=== PATIENT | male | born 1965 | race African-American/Black ===

== ENCOUNTER 2017-10-27 16:22 | Observation (INO) | payer OTHER ==
[2017-10-27] MEDS ORDERED: Nitroglycerin 0.4 MG TAB (25 Tab Bottle) ONE (16:48)
[2017-10-27 16:55] LABS: #Eosinphils 0.1 thou/uL (0.0-0.7); #Lymphocytes 1.9 thou/uL (1.20-3.40); #Monocytes 0.3 thou/uL (0.11-0.59); #Neutrophils 1.7 thou/uL (1.40-6.50); %Basophils 1.2 % (0.0-1.0); %Eosinophils 2.9 % (0.0-10.0); %Lymphocytes 47.8 % (21.0-51.0); %Monocytes 6.8 % (0.0-10.0); %Neutrophils 41.3 % (42.0-75.0); Hemoglobin 14.1 g/dL (14.0-18.0); Mean Corpuscular Hemoglobin 31.6 pg (27.0-31.0); Mean Corpuscular Volume 87.7 fl (80.0-94.0); Mean Platelet Volume 7.8 fL (7.4-10.4); Platelet Count 165 thou/uL (130-400); RBC Distribution Width 12.3 % (11.5-14.5); Red Blood Cell (RBC) Count 4.47 mill/uL (4.70-6.10)
--- NOTE | 2017-10-27 17:02 | RAD ---
PORTABLE CHEST ONE VIEW: 10/27/17 at 4:47 p.m. HISTORY: Chest pain. FINDINGS: Comparison made with exam of 03/31/16. The heart size is normal. No focal areas of consolidation, pneumothoraces or pleural effusions are se en. IMPRESSION: No radiographic evidence of acute cardiopulmonary process. POS: [facility]
[2017-10-27 17:11] LABS: ALT (SGPT) 95 U/L (8-55); AST (SGOT) 37 U/L (5-34); Albumin 4.6 g/dL (3.5-5.0); Alkaline Phosphatase 58 U/L (40-150); Anion Gap 14 mmol/L (10-20); BUN (Urea Nitrogen) 20 mg/dL (8.9-20.6); Bilirubin, Total 0.5 mg/dL (0.2-1.2); CK (CPK) 447 U/L (30-200); Calc. Creatinine Clearance 0 mL/min (70-130); Calcium 10.2 mg/dL (7.8-10.44); Carbon Dioxide 26 mmol/L (22-29); Chloride 103 mmol/L (98-107); Estimated GFR-MDRD 72; Glucose 88 mg/dL (70-105); Lipase 17 U/L (8-78); Potassium 3.8 mmol/L (3.5-5.1); Protein, Total 7.6 g/dL (6.0-8.3); Sodium 139 mmol/L (136-145)
[2017-10-27 17:13] LABS: CKMB 3.4 ng/mL (0-6.6); Troponin I Less than 0.010 ng/mL (< 0.028)
[2017-10-27 20:29] LABS: Troponin I Less than 0.010 ng/mL (< 0.028)
[2017-10-27 23:11] LABS: Troponin I Less than 0.010 ng/mL (< 0.028)
[2017-10-27] MEDS ORDERED: Ondansetron HCl/PF 4 MG/2 ML Vial IVP PRN (23:14)
[2017-10-27] MEDS ORDERED: Ondansetron ODT 4 MG TAB SL PRN (23:14)
[2017-10-27] MEDS ORDERED: Sodium Chloride 0.9% 1,000 ML IV SCH (23:14)
[2017-10-27] MEDS ORDERED: Acetaminophen 325 MG TAB PO PRN (23:14)
[2017-10-27 23:43] VITALS: BMI 20.1
[2017-10-28] MEDS ORDERED: Acetaminophen 325 MG TAB PO PRN (00:54)
[2017-10-28] MEDS ORDERED: Calcium Carbonate 500 MG ChewTAB PO PRN (00:54)
[2017-10-28] MEDS ORDERED: Ondansetron HCl/PF 4 MG/2 ML Vial IVP PRN (00:54)
[2017-10-28] MEDS ORDERED: Nitroglycerin 0.4 MG TAB (25 Tab Bottle) PO PRN (00:54)
[2017-10-28] MEDS ORDERED: Milk Of Magnesia 30 ML UDCUP PO PRN (00:54)
[2017-10-28] MEDS ORDERED: Senokot 8.6 MG TAB PO PRN (00:54)
[2017-10-28] MEDS ORDERED: Ondansetron ODT 4 MG TAB PO PRN (00:54)
[2017-10-28] MEDS ORDERED: hydrALAZINE 20 MG/ML VIAL SLOW IVP PRN (01:06)
--- NOTE | 2017-10-28 01:16 | HP ---
The patient was seen and examined on 10/27/2017. PRIMARY CARE PHYSICIAN: Quiana Valderrama DO PRIMARY DOCK ASSOCIATE: Ricardo Mensah MD CHIEF COMPLAINT: Chest discomfort. HISTORY OF PRESENT ILLNESS: The patient is a 51-year-old male with cardiomyopathy and hypertension p resented to the emergency room with chest discomfort that started this afternoon. The chest discomfo rt was stabbing in nature, 10/10, substernal, without any aggravating or relieving factor. It was mo re or less constant. He denies any associated nausea, vomiting, diaphoresis, palpitations, or syncop e. He denies recent immobilization, travel, cough, shortness of breath, wheezing, or heartburn. He has generalized fatigue per family report. At times, he gets short of breath on moderate exertion. He had an echocardiogram with Dr. Mensah last week. PAST MEDICAL HISTORY: 1. Hypertension. 2. Cardiomyopathy. 3. Hyperlipidemia. PAST SURGICAL HISTORY: Reviewed with the patient and none. ALLERGIES: No known drug allergies. CURRENT HOME MEDICATIONS: Per [facility], lisinopril/HCTZ 20/25 daily, Procardia-XL, Procardia XL 60 m g twice a day, potassium chloride 20 mEq daily, carvedilol 3.125 mg twice a day, diclofenac 75 mg twi ce a day. SOCIAL HISTORY: The patient currently lives at home with his family. Denies any current use of smok ing, alcohol, or drug use. FAMILY HISTORY: Positive for heart disease. REVIEW OF SYSTEMS: The following complete review of systems was negative, unless otherwise mentioned in the HPI or below: Constitutional: Weight loss or gain, ability to conduct usual activities. Skin: Rash, itching. Eyes: Double vision, pain. ENT/Mouth: Nose bleeding, neck stiffness, pain, tenderness. Cardiovascular: Palpitations, dyspnea on exertion, orthopnea. Respiratory: Shortness of breath, wheezing, cough, hemoptysis, fever or night sweats. Gastrointestinal: Poor appetite, abdominal pain, heartburn, nausea, vomiting, constipation, or diarrhea. Genitourinary: Urgency, frequency, dysuria, nocturia. Musculoskeletal: Pain, swelling. Neurologic/Psychiatric: Anxiety, depression. Allergy/Immunologic: Skin rash, bleeding tendency. PHYSICAL EXAMINATION: VITAL SIGNS: In the emergency room showed temperature 98.5, respirations 16, pulse rate of 98 with b lood pressure of 168/93 with O2 saturation 98% on room air. GENERAL: A 51-year-old male in no apparent distress. Chest discomfort has improved with nitroglycer in. HEENT: Head, atraumatic, normocephalic. Sclerae anicteric. Moist mucous membrane. No oral lesion. NECK: Supple. No JVD, no carotid bruit. LUNGS: Clear to auscultation bilaterally. No wheezing, rales, or rhonchi. HEART: S1, S2 present. Regular rate and rhythm. No murmur, rubs, or gallops appreciated. ABDOMEN: Soft, nontender. Bowel sounds present. EXTREMITIES: No edema or calf tenderness. NEUROLOGIC: Grossly nonfocal. He moves all four extremities. PSYCHIATRY: Alert, awake, oriented x3. SKIN: Warm and dry. LYMPH NODE: No palpable lymph nodes in the neck. PERIPHERAL VASCULAR: Radial pulse is palpable bilaterally. MUSCULOSKELETAL: No joint swelling or tenderness. LABORATORY FINDINGS: CBC showed WBC 4 with hemoglobin 14.1, platelet 165. Chemistries showed sodium 139, potassium 3.8, chloride 103, bicarbonate 26, BUN of 20, creatinine 1.28, AST of 37, ALT of 95, creatinine kinase of 447. Troponins were negative. BNP was negative. EKG by my review showed sinus bradycardia with left ventricular hypertrophy. Chest x-ray by my review was negative for infiltrate . IMPRESSION: 1. Chest discomfort, rule out acute coronary syndrome. 2. Cardiomyopathy with echocardiogram last week at Dr. Mensah's office. 3. Hypertension with hypertensive heart disease. 4. Chronic kidney disease, stage 2. 5. Chronically elevated CK. 6. Abnormal AST and ALT, chronic. Primary care physician advised to follow. 7. Degenerative joint disease. 8. Dyslipidemia. PLAN: The patient will be monitored on the telemetry unit. We will keep him n.p.o. past midnight. We will continue carvedilol with Procardia XL. Continue lisinopril and hydrochlorothiazide. We will consult Cardiology. We will try to obtain echocardiogram report from Dr. Mensah's office. We will keep him n.p.o. for possible stress test. Plan of care was discussed with the patient in detail. He stated understanding.
[2017-10-28 01:37] LABS: Magnesium 1.9 mg/dL (1.6-2.6); Phosphorus 3.3 mg/dL (2.3-4.7)
[2017-10-28] MEDS ORDERED: Aspirin 325 MG TAB PO SCH (09:00)
[2017-10-28] MEDS ORDERED: NIFEdipine XL 60 MG TAB PO SCH (09:00)
[2017-10-28] MEDS ORDERED: Aspirin 325 mg Enteric Coated Tablet PO SCH (09:00)
[2017-10-28] MEDS ORDERED: Lisinopril/Hydrochlorothiazide 20/25 mg Tablet PO SCH (09:00)
[2017-10-28] MEDS ORDERED: Carvedilol 3.125 MG TAB PO SCH (09:00)
[2017-10-28] MEDS ORDERED: Famotidine 20 MG TAB PO SCH (09:00)
[2017-10-28] MEDS ORDERED: Regadenoson 0.4 MG/5 ML SYRINGE ONE (11:32)
[2017-10-28 15:49] VITALS: BP 154/86; TEMP 97.4
--- NOTE | 2017-10-28 15:51 | NM ---
CARDIAC SPECT: CLINICAL HISTORY: 51-year-old black male with chest pain, hypertension, and dyslipidemia. TECHNIQUE: A myocardial perfusion scan was performed using the single isotope one day protocol with technetium-9 9m sestamibi. 11 mCi were injected intravenously for the rest exam followed by 30 mCi for the stress exam. Pharmacologic stress with Lexiscan was monitored and interpreted by Dr. Smith. FINDINGS: Homogeneous tracer distribution is seen in the myocardial segments on stress and rest images without fixed or reversible defects. GATED SPECT LVEF: 54%. WALL MOTION EXAM: Normal. IMPRESSION: Normal myocardial perfusion scan. POS: [facility]
--- NOTE | 2017-10-28 16:20 | CON ---
DATE OF CONSULTATION: 10/28/2017 PRIMARY INTERNAL CARVER: Ricardo Mensah M.D. REASON FOR CONSULTATION: Chest pain. HISTORY OF PRESENT ILLNESS: Mr. Bustos is a pleasant 51-year-old -[place] gentleman who come s to the hospital for chest pain. He had a stabbing sensation in his midsternal area. No irradiatin g fact, no radiation, no exacerbating or attenuating factors. He came into the hospital for this. H e was ruled out with negative enzymes and admitted for further evaluation. He had an echocardiogram that was completely normal just a week ago with normal LV function. He did have a nonischemic cardio myopathy thought to be related to hypertension. His EF went down to 20%-25%. He did have risk strat ification with a stress at that time. He has ever had a heart catheterization. Stress was negative. He also had a repeat stress back in 2015 which was negative as well. He does not really ever have chest pain. This is very uncommon with him. He is feeling much better. Denies any chest pain, tigh tness, pressure, shortness of breath at that time. PAST MEDICAL HISTORY: 1. Hypertension. 2. Hypertensive cardiomyopathy, dilated, EF normalized. 3. Hyperlipidemia. PAST SURGICAL HISTORY: None. ALLERGIES: No known drug allergies. OUTPATIENT MEDICATIONS: 1. Lisinopril/HCTZ 20/25 daily. 2. Procardia-XL 60 mg twice a day. 3. Potassium chloride 20 mEq a day. 4. Carvedilol 3.125 mg b.i.d. 5. Diclofenac p.r.n. SOCIAL HISTORY: No alcohol, tobacco or drugs. FAMILY HISTORY: Positive for early coronary artery disease. REVIEW OF SYSTEMS: A 12 point review of systems was done and is all negative unless stated in histor y of present illness. PHYSICAL EXAMINATION: VITAL SIGNS: Temperature 97.6, pulse 59, respiration rate 18, satting 98% on room air, blood pressur e 169/92. GENERAL: Awake, alert, oriented x3, in no distress. HEENT: Normocephalic, atraumatic. NECK: Supple. LUNGS: Clear. CARDIOVASCULAR: S1, S2, no S3, S4, no murmurs or rubs. ABDOMEN: Soft. Positive bowel sounds. EXTREMITIES: No edema. SKIN: Warm and dry. LABORATORY WORK: Reviewed. Troponins are completely undetectable x3. BNP was undetectable as well. AST, ALT are chronically high. CK was also chronically high. BUN 20, creatinine 1.28, phosphorus back was normal. CBC with a white count of 4, hemoglobin 14, hematocrit of 39, platelet count of 165 . EKG was reviewed. ASSESSMENT AND PLAN: 1. Chest pain: Atypical in nature. We will get a stress test to further risk stratify. He is comp letely back to normal. It may have been related to an elevated blood pressure on admission it was 17 0/110, much better now. If stress test is abnormal, he may need a heart catheterization for further risk stratification. Otherwise, he may be able to go home later today. 2. Further recommendations per results of stress test. 3. Otherwise, on discharge, he will follow up with Dr. Mensah in 1-2 months.
--- NOTE | 2017-10-29 02:45 | DIS ---
DATE OF ADMISSION: 10/27/2017 DATE OF DISCHARGE: 10/28/2017 DISCHARGE DIAGNOSES: 1. Chest pain, atypical, likely musculoskeletal, resolved. 2. Hypertension, labile. 3. Sinus bradycardia, stable. 4. Chronic kidney disease, stage 2. 5. Transaminitis, chronic. CONSULTATION: Dr. Smith with Cardiology Service. PERTINENT LABORATORY AND X-RAY FINDINGS: Creatinine 1.28 with estimated GFR of 72, phosphorus 3.3, m agnesium 1.9, AST 37, ALT 95, total CK 447. Troponin I negative x3. BNP is less than 10. CBC is wi thin normal limits. Portable chest x-ray dated 10/27/2017 showed no acute cardiopulmonary process. Cardiolite stress test dated 10/28/2017 showed no evidence for reversible or fixed ischemia with calc ulated ejection fraction of 54%. HOSPITAL COURSE: The patient was observed on the telemetry unit after initially presenting with ches t pain; undergoing serial cardiac enzymes, which were negative x3. The patient proceeded to Cardioli te stress testing showing no evidence of reversible or fixed ischemia with calculated ejection fracti on of 54%. The patient was noted on telemetry monitoring with sinus bradycardia with heart rates in the 50s; however, remained asymptomatic. The patient was evaluated by the Cardiology service with re commendations for supportive management and continued outpatient medication regimen. Overall, the roland baptiste remained clinically stable during observation. I have examined the patient at the time of disc harge and discussed pertinent laboratory studies and followup instructions. The patient verbalizes u nderstanding and agreement, and will be discharged home on 10/28/2017. DISCHARGE MEDICATIONS: 1. Carvedilol 3.125 mg p.o. b.i.d. 2. Lisinopril/HCTZ 20/25 mg, 1 tab p.o. daily. 3. Nifedipine ER 60 mg p.o. b.i.d. 4. K-Dur 20 mEq p.o. daily. 5. Diclofenac 75 mg p.o. b.i.d. FOLLOWUP: The patient will follow up with his primary care provider, Dr. Quiana Valderrama, within 7 d ays of discharge. The patient will follow up with Dr. Mensah with [facility] i n 2 months. CONDITION ON DISCHARGE: Stable. ACTIVITY: Ad hollie. DIET: Heart healthy. CODE STATUS: Full. DISPOSITION: Home, 10/28/2017.
== END 2017-10-28 17:25 | disposition home or self-care (01) ==
LOC: ERS 16:22 → 2SW 21:25
PROVIDERS: ADMIT Internal Medicine; ATTEND Internal Medicine
DX: R07.89 Other chest pain (principal); I13.10 Hypertensive heart and chronic kidney disease without heart failure, with stage 1 through stage 4 chronic kidney disease, or unspecified chronic kidney disease; N18.2 Chronic kidney disease, stage 2 (mild); E78.5 Hyperlipidemia, unspecified; M19.90 Unspecified osteoarthritis, unspecified site; Z79.899 Other long term (current) drug therapy
CPT/HCPCS: 36415; 71045; 78452; 80053; 82553; 83690; 83735; 83880; 84100; 84484; 85025; 93005; 93017; 94760; A4216; A9500; G0378; J2785

== ENCOUNTER 2017-11-01 06:48 | Emergency (ER) | payer OTHER ==
[2017-11-01 07:12] LABS: #Basophils 0.1 thou/uL (0.0-0.2); #Eosinphils 0.1 thou/uL (0.0-0.7); #Lymphocytes 1.7 thou/uL (1.20-3.40); #Monocytes 0.2 thou/uL (0.11-0.59); #Neutrophils 1.4 thou/uL (1.40-6.50); %Basophils 1.4 % (0.0-1.0); %Eosinophils 3.4 % (0.0-10.0); %Monocytes 6.5 % (0.0-10.0); %Neutrophils 39.7 % (42.0-75.0); Hemoglobin 14.9 g/dL (14.0-18.0); Mean Corpuscular HGB CONC 36.5 g/dL (32.0-36.0); Mean Corpuscular Hemoglobin 31.6 pg (27.0-31.0); Mean Corpuscular Volume 86.7 fl (80.0-94.0); Mean Platelet Volume 7.4 fL (7.4-10.4); Platelet Count 170 thou/uL (130-400); RBC Distribution Width 12.3 % (11.5-14.5); Red Blood Cell (RBC) Count 4.71 mill/uL (4.70-6.10); White Blood Cell (WBC) Count 3.5 thou/uL (4.8-10.8)
[2017-11-01 07:43] LABS: ALT (SGPT) 94 U/L (8-55); AST (SGOT) 43 U/L (5-34); Albumin 4.7 g/dL (3.5-5.0); Alkaline Phosphatase 57 U/L (40-150); Anion Gap 13 mmol/L (10-20); BUN (Urea Nitrogen) 17 mg/dL (8.9-20.6); Bilirubin, Total 0.6 mg/dL (0.2-1.2); CK (CPK) 390 U/L (30-200); Calc. Creatinine Clearance 0 mL/min (70-130); Carbon Dioxide 26 mmol/L (22-29); Chloride 103 mmol/L (98-107); Estimated GFR-MDRD 70; Globulin 2.8 g/dL (2.4-3.5); Glucose 119 mg/dL (70-105); Protein, Total 7.5 g/dL (6.0-8.3); Sodium 139 mmol/L (136-145)
[2017-11-01 07:47] LABS: CKMB 1.9 ng/mL (0-6.6); Troponin I Less than 0.010 ng/mL (< 0.028)
--- NOTE | 2017-11-01 08:20 | RAD ---
PORTABLE CHEST 1 VIEW: DATE: 11/01/17. TIME: 7:09 a.m. HISTORY: Chest pain. FINDINGS: Comparison is made with the exam of 10/27/17. The heart size is normal. No lobar consolidation or pneumothoraces or pleural effusions are seen. POS: [facility]
[2017-11-01 10:49] LABS: Troponin I Less than 0.010 ng/mL (< 0.028)
== END 2017-11-01 11:00 | disposition home or self-care (01) ==
LOC: ERS 06:48
DX: R07.9 Chest pain, unspecified (principal); I11.0 Hypertensive heart disease with heart failure; I50.9 Heart failure, unspecified
CPT/HCPCS: 36415; 71045; 80053; 82553; 83880; 84484; 85025; 93005; 94760; 94799

== ENCOUNTER 2019-01-14 20:28 | Observation (INO) | payer OTHER ==
--- NOTE | 2019-01-14 21:14 | RAD ---
PORTABLE CHEST ONE VIEW: 01/14/19 at 8:42 p.m. HISTORY: Left sided chest pain. FINDINGS: Comparison made with exam of 11/01/17. The heart size is normal. No focal areas of consolidation, pneumothoraces or pleural effusions are se en. IMPRESSION: No acute process. POS: [facility]
[2019-01-14 21:22] LABS: Hemoglobin 14.1 g/dL (14.0-18.0); Mean Corpuscular HGB CONC 35.8 g/dL (32.0-36.0); Mean Corpuscular Hemoglobin 31.3 pg (27.0-31.0); Mean Corpuscular Volume 87.3 fL (78.0-98.0); Mean Platelet Volume 8.1 fL (7.4-10.4); Platelet Count 185 thou/uL (130-400); RBC Distribution Width 12.4 % (11.5-14.5); Red Blood Cell (RBC) Count 4.51 mill/uL (4.70-6.10); White Blood Cell (WBC) Count 4.4 thou/uL (4.8-10.8)
[2019-01-14 21:26] LABS: ALT (SGPT) 53 U/L (8-55); AST (SGOT) 33 U/L (5-34); Albumin 4.6 g/dL (3.5-5.0); Alkaline Phosphatase 55 U/L (40-150); Anion Gap 13 mmol/L (10-20); BUN (Urea Nitrogen) 23 mg/dL (8.4-25.7); Bilirubin, Total 0.3 mg/dL (0.2-1.2); CK (CPK) 937 U/L (30-200); Calc. Creatinine Clearance 0 mL/min (70-130); Calcium 9.8 mg/dL (7.8-10.44); Carbon Dioxide 26 mmol/L (22-29); Chloride 101 mmol/L (98-107); Estimated GFR-MDRD 65; Globulin 2.6 g/dL (2.4-3.5); Glucose 91 mg/dL (70-105); Lipase 26 U/L (8-78); Protein, Total 7.2 g/dL (6.0-8.3); Sodium 137 mmol/L (136-145)
[2019-01-14 21:42] LABS: Eosinophils 5 % (0-10); Lymphocytes 61 % (21-51); MDiff Complete? YES; Monocytes 6 % (0-10); Neutrophil 28 % (42-75)
[2019-01-14] MEDS ORDERED: Potassium Chloride 20 MEQ TAB ONE (21:46)
[2019-01-14] MEDS ORDERED: Aspirin Chewable 81 MG TAB ONE (22:44)
[2019-01-14] MEDS ORDERED: Sodium Chloride 0.9% 1,000 ML IV SCH (23:15)
[2019-01-15 00:02] VITALS: BMI 25.0
[2019-01-15] MEDS ORDERED: hydrALAZINE 25 MG TAB PO SCH ×2 (00:45→09:00)
[2019-01-15 00:54] LABS: Troponin I 0.016 ng/mL (< 0.028)
[2019-01-15 03:19] LABS: Troponin I Less than 0.010 ng/mL (< 0.028)
[2019-01-15 03:24] LABS: Eosinophils 1 % (0-10); Hemoglobin 13.7 g/dL (14.0-18.0); Lymphocytes 60 % (21-51); MDiff Complete? YES; Mean Corpuscular HGB CONC 35.7 g/dL (32.0-36.0); Mean Corpuscular Hemoglobin 31.6 pg (27.0-31.0); Mean Corpuscular Volume 88.5 fL (78.0-98.0); Monocytes 7 % (0-10); Neutrophil 31 % (42-75); Platelet Count 163 thou/uL (130-400); RBC Distribution Width 12.3 % (11.5-14.5); Red Blood Cell (RBC) Count 4.33 mill/uL (4.70-6.10); White Blood Cell (WBC) Count 3.9 thou/uL (4.8-10.8)
[2019-01-15 03:48] LABS: Anion Gap 14 mmol/L (10-20); BUN (Urea Nitrogen) 20 mg/dL (8.4-25.7); Calc. Creatinine Clearance 80 mL/min (70-130); Calcium 9.7 mg/dL (7.8-10.44); Carbon Dioxide 25 mmol/L (22-29); Cardiac Risk 7.6 (Less than 4.5); Chloride 101 mmol/L (98-107); Cholesterol 258 mg/dl (< 200 Desired); Estimated GFR-MDRD 79; Glucose 108 mg/dL (70-105); HDL Cholesterol 34 mg/dL (>60 Neg Risk); LDL Cholesterol, Calculated 188 mg/dL; Potassium 3.3 mmol/L (3.5-5.1); Sodium 137 mmol/L (136-145); Triglycerides 182 mg/dL (Less than 150)
--- NOTE | 2019-01-15 04:07 | HP ---
PRIMARY CARE PHYSICIAN: Dr. Valderrama. CHIEF COMPLAINT: Chest pain. HISTORY OF PRESENT ILLNESS: Mr. Bustos is a 53-year-old male, who reported to the emergency room today after he has had chest pain today x2. Reports that it started at 11 o'clock today, went away, and came back this afternoon after he woke up from a nap. Reports he has had similar chest pain on and off for the last month. Reports that he went to see his PCP about 2 weeks ago and was told that if it got worse or did not get better, to come to the emergency room for evaluation. Reports that he took 81 mg of aspirin this morning as his normal regimen and reports that the medicine they gave him here, which was another 243 mg of aspirin and some potassium chloride, made his pain go away. The patient was evaluated for similar pain a year ago in October, and at that time, he had a negative stress test with an EF of 54%. He states this afternoon when he had his recurrent chest pain, caused him to have some nausea. Pain radiated in the left side of his chest to his left arm and he said that the bottoms of his feet were burning, that lasted a couple of minutes and then resolved. He said it got better after the medicine they gave him here. He reports a history of CHF, hypertension, high cholesterol, and arthritis. EKG in the emergency room shows sinus shira beats per minute 55 with no ectopics, ST segments normal, T-waves normal, axis is normal. First troponin is undetectable. He is noted to be a little hypokalemic with potassium of 3 and his creatinine is slightly bumped at 1.4. His CK in the emergency room is also 937. He will be admitted to the observation unit for further management. PAST MEDICAL HISTORY: Hypertension, cardiomyopathy, and hyperlipidemia. PAST SURGICAL HISTORY: None. ALLERGIES: NONE. MEDICATIONS: Medications from home need to be reconciled per the ER. 1. Diclofenac 75 mg b.i.d. 2. Lisinopril and hydrochlorothiazide 20/25 p.o. once a day. 3. Nifedipine 90 mg p.o. once a day. 4. Hydralazine 25 mg daily. 5. Aspirin 81 mg p.o. daily. REVIEW OF SYSTEMS: The patient reports chest pain, left-sided, with left arm radiation. Reports some nausea and shortness of breath. Reports this pain has been coming and going for the last month. Reports intermittent leg cramping. Denies abdominal pain or diarrhea. Reports some constipation. Denies dizziness. Denies headache, fever or chills. All other systems are reviewed and are negative unless mentioned in HPI. PHYSICAL EXAMINATION: VITAL SIGNS: Blood pressure is 154/87, pulse is 49, respirations are 18, temp is 98.0, and O2 sats are 99% on room air. CONSTITUTIONAL: The patient is nontoxic appearing. He is alert and oriented to person, place and time. HEENT: Head is atraumatic and normocephalic. Eyes; eyelids are normal to inspection. Sclera is bloodshot bilaterally. Conjunctiva injected. Equally round and reactive to light. ENT, mucous membranes are moist. Mouth exam is normal. NECK: Normal range of motion. Trachea is midline. RESPIRATORY/CHEST: Breath sounds are clear. No signs of any respiratory distress. CARDIOVASCULAR: Regular heart rate and rhythm. Heart sounds are normal. ABDOMEN: Nontender. Bowel sounds are heard. BACK: Normal inspection. Normal range of motion. EXTREMITIES: Upper extremity, normal range of motion, normal inspection, sensation is intact, radial pulses are equal bilaterally. Lower extremity, normal range of motion, motor strength is normal, pedal pulses are normal. NEUROLOGIC: The patient is oriented to person, place, and time. Speech is normal. SKIN: Warm, dry, normal in color. PLAN AND ASSESSMENT: 1. Chest pain. We will trend troponins, first one is undetectable. Order a stress test with nuclear medicine for in the morning. Aspirin daily. Order a fasting lipid and a TSH. 2. Hypertension. We will continue home medications, we will trend. 3. Hypokalemia. 40 mEq potassium was given in the ER. We will repeat value in the a.m. 4. Chronic kidney disease. Creatinine is slightly bumped at 1.4 with a CK of 937. We would gently hydrate with normal saline at 70 mL per hour x1 bag. We will recheck this in the morning. We will hold the lisinopril for now. 5. Deep venous thrombosis and gastrointestinal prophylaxis have been started. 6. Case discussed with Dr. Cuello, who agrees to plan. 7. Hospital course is dependent on clinical findings. Job ID: [id number]
[2019-01-15] MEDS: Acetaminophen 325 MG TAB PO PRN ×2 (07:53→15:07)
[2019-01-15] MEDS ORDERED: Ondansetron PF 4 MG/2 ML Vial IVP PRN (08:02)
[2019-01-15] MEDS ORDERED: Nitroglycerin 0.4 MG TAB (25 Tab Bottle) SL PRN (08:02)
[2019-01-15] MEDS ORDERED: Cepastat Lozenges 1 LOZ PO PRN (08:02)
[2019-01-15] MEDS ORDERED: Loratadine 10 MG TAB PO PRN (08:02)
[2019-01-15] MEDS ORDERED: Sodium Chloride 0.65% Nasal 44 ML BOT EA NARE PRN (08:02)
[2019-01-15] MEDS ORDERED: hydrALAZINE 20 MG/ML VIAL SLOW IVP PRN (08:02)
[2019-01-15] MEDS ORDERED: Loperamide HCl 2 MG CAP PO PRN (08:02)
[2019-01-15] MEDS ORDERED: HYDROcodone/Acetaminophen 5/325 mg Tablet PO PRN (08:02)
[2019-01-15] MEDS ORDERED: Artificial Tears 18 DROP/0.9 ML EA EYE PRN (08:02)
[2019-01-15] MEDS ORDERED: Ondansetron ODT 4 MG TAB PO PRN (08:02)
[2019-01-15] MEDS ORDERED: Calcium Carbonate 500 MG ChewTAB PO PRN (08:02)
[2019-01-15] MEDS ORDERED: Zolpidem Tartrate 5 MG TAB PO PRN (08:02)
[2019-01-15] MEDS ORDERED: Diabetic Tussin 200 MG/10 ML UDCUP PO PRN (08:02)
[2019-01-15] MEDS ORDERED: Potassium Chloride 20 MEQ TAB PO SCH (08:15)
[2019-01-15] MEDS ORDERED: Senokot S 8.6-50 MG TAB PO SCH (09:00)
[2019-01-15] MEDS ORDERED: Famotidine 20 MG TAB PO SCH (09:00)
[2019-01-15] MEDS ORDERED: Aspirin 325 mg Enteric Coated Tablet PO SCH (09:00)
--- NOTE | 2019-01-15 10:18 | PDOC.HOSPP ---
- Subjective Encounter Date: 01/15/19 Encounter Time: 10:18 Subjective: Patient seen and examined. No overnight events c/o burning urination - Objective Vital Signs & Weight: Vital Signs (12 hours) Temp Pulse Resp BP Pulse Ox 01/15/19 07:52 98.0 F 47 L 16 126/76 100 01/15/19 04:10 97.4 F L 45 L 18 143/80 H 100 01/15/19 01:05 47 L 01/14/19 23:52 97.6 F 47 L 18 150/87 H 99 Weight Weight 169 lb 12.8 oz I&O: 01/14/19 01/15/19 01/16/19 06:59 06:59 06:59 Intake Total 597 Output Total 500 Balance 97 Result Diagrams: 01/15/19 02:46 01/15/19 02:46 Radiology Reviewed by me: Yes EKG Reviewed by me: Yes Hospitalist ROS - Review of Systems ENT: denies: ear pain, ear discharge, nose pain, nose discharge, nose congestion , mouth pain, mouth swelling, throat pain, throat swelling, other Respiratory: denies: cough, dry, shortness of breath, hemoptysis, SOB with excertion, pleuritic pain, sputum, wheezing, other Cardiovascular: denies: chest pain, palpitations, orthopnea, paroxysmal noc. dyspnea, edema, light headedness, other Gastrointestinal: denies: nausea, vomitting, abdominal pain, diarrhea, constipation, melena, hematochezia, other Genitourinary: reports: dysuria Musculoskeletal: denies: neck pain, shoulder pain, arm pain, back pain, hand pain, leg pain, foot pain, other Skin: denies: rash, lesions, josue, bruising, other - Medication Medications: Active Medications Generic Name Dose Route Start Last Admin Trade Name Freq PRN Reason Stop Dose Admin Acetaminophen 650 mg 01/14/19 23:10 01/15/19 07:53 Tylenol PO 650 mg Q4H PRN Administration Headache/Fever/Mild Pain (1-3) Sodium Chloride 1,000 mls @ 70 mls/hr 01/14/19 23:15 01/15/19 00:33 Normal Saline 0.9% IV 01/15/19 13:32 1,000 mls .[id number] SONY Administration - Exam General Appearance: NAD, awake alert Eye: PERRL, anicteric sclera ENT: normocephalic atraumatic, no oropharyngeal lesions Neck: supple, symmetric, no JVD, no thyromegaly Heart: RRR, no murmur, no gallops, no rubs Respiratory: CTAB, no wheezes, no rales, no ronchi Gastrointestinal: soft, non-tender, non-distended, normal bowel sounds, no palpable masses, no hepatomegaly Extremities: no cyanosis, no clubbing, no edema Skin: normal turgor, no lesions, no rashes Neurological: CN's grossly intact, normal sensation to touch, no focal deficits Musculoskeletal: normal tone, normal strength Psychiatric: normal affect, normal behavior, A&O x 3 Hosp A/P (1) DIONISIO (acute kidney injury) Code(s): N17.9 - ACUTE KIDNEY FAILURE, UNSPECIFIED Status: Acute (2) Chest pain Code(s): R07.9 - CHEST PAIN, UNSPECIFIED Status: Acute (3) Hypokalemia Code(s): E87.6 - HYPOKALEMIA Status: Acute (4) Leucopenia Code(s): D72.819 - DECREASED WHITE BLOOD CELL COUNT, UNSPECIFIED Status: Acute (5) Rhabdomyolysis Code(s): M62.82 - RHABDOMYOLYSIS Status: Acute (6) Dyslipidemia Code(s): E78.5 - HYPERLIPIDEMIA, UNSPECIFIED Status: Chronic (7) Hypertension Code(s): I10 - ESSENTIAL (PRIMARY) HYPERTENSION Status: Chronic - Plan old records reviewed/req, plan discussed w/ family stress test today medication reviewed as above symptomatic treatment sen UA
--- NOTE | 2019-01-15 12:45 | NM ---
EXAM: Nuclear medicine cardiac SPECT with EF and wall motion: HISTORY: Chest pain, hypertension Protocol: Exam was performed using treadmill stress protocol. The patient is injected with31.1 millicuries of technetium 99m sestamibi intravenously for stress im ages. The patient is injected with9.0 millicuries of technetium 99 sestamibi intravenously for resting imag es. Multiple SPECT images are performed in the short axis, vertical long axis, and horizontal long axis. FINDINGS: No scan evidence for infarct or ischemia. TID:0.83 LHR:0.27 EDV:91 mL EF:87% Wall motion:Normal IMPRESSION: Unremarkable cardiac SPECT scan. No scan evidence for infarct or ischemia.
[2019-01-15 15:25] LABS: Bacteria/HPF None Seen HPF (None Seen); Bilirubin Negative (Negative); Blood, Urine 2+ (Negative); Clarity Clear (Clear); Glucose, Urine (Dipstick) Normal (Negative); Leukocyte 25 Leu/uL (Negative); Nitrite Negative (Negative); Protein, Urine (Dipstick) Negative (Neg-Trace); RBC/HPF Greater than 50 HPF (0-3); Squamous Epithelial 0-3 HPF (0-3); Urobilinogen Normal mg/dL (Less than 2)
[2019-01-15 15:32] VITALS: BP 142/103; TEMP 98.2
--- NOTE | 2019-01-15 17:34 | CT ---
CT STONE PROTOCOL: History: 53-year-old male with hematuria. Nausea. Burning sensation with urination. FINDINGS: Absence of oral and IV contrast limits the sensitivity of the exam, particularly for evaluation of so lid organs and bowel. The lung bases are clear. Gallstones are present. The small bowel loops are not abnormally dilated. A normal appearing appendix is seen. There are vascular calcifications without evidence of aneurysmal dilatation of the abdominal aorta. Degenerative changes are present in the spine. No calculi are seen in the kidneys, ureters, or urinary bladder. No hydroureteronephrosis is noted on either side. Calcified phleboliths are present. The prostate is enlarged. There are vascular calcifications without evidence of aneurysmal dilatation of the abdominal aorta. IMPRESSION: 1. No CT evidence of urinary tract calculi or obstruction. 2. Prostatic enlargement. 3. Cholelithiasis. POS: [facility]
--- NOTE | 2019-01-15 18:09 | DIS ---
DATE OF ADMISSION: 01/14/2019 DATE OF DISCHARGE: 01/15/2019 PRIMARY CARE PHYSICIAN: Quiana Valderrama, DISCHARGE DISPOSITION: Home. PRIMARY DISCHARGE DIAGNOSES: Acute kidney injury, resolved. Chest pain, ruled out acute coronary syndrome. Hypokalemia, replaced. Leukopenia and rhabdomyolysis, improving. Benign enlargement of prostate and microscopic hematuria. SECONDARY DISCHARGE DIAGNOSES: Hypertension and dyslipidemia. PRIMARY PROCEDURE/OPERATION: None. RADIOLOGICAL INVESTIGATION: Chest x-ray normal. Stress test negative. Abdomen and pelvis CT scan negative for nephrolithiasis, showed benign enlargement of prostate. SIGNIFICANT LABORATORY DATA: WBC 3.9. Potassium 3.3, creatinine 1.17, and LDL 188. Urinalysis showing microscopic hematuria. DISCHARGE MEDICATIONS: 1. Aspirin 81 mg daily. 2. Hydralazine 25 mg p.o. b.i.d. 3. Procardia XL 60 mg b.i.d. 4. Cipro 500 mg p.o. b.i.d. for 5 days. 5. Prinzide 20/25 one tablet daily. 6. Flomax 0.4 mg p.o. daily. 7. Lipitor 40 mg p.o. at bedtime. CONTRAINDICATION: None. CODE STATUS: Full code. INPATIENT SKIRT CLIPPER: None. ALLERGIES: NO KNOWN DRUG ALLERGIES. DISCHARGE PLAN: Posthospital, the patient is instructed to follow up with primary care physician. Primary care physician requested to give him follow up with the urologist. The patient will need outpatient followup with Hematology for his leukopenia and relative lymphocytosis. HOSPITAL COURSE: A 53-year-old male, who was admitted by Birgit Salazar. Please see her H and P for further details. The patient was admitted for chest pain. He had negative cardiac enzyme. He had mildly elevated CK that was also improved after IV fluid. He had mild acute kidney injury that was resolved with IV fluid. He has leukopenia and relative lymphocytosis and that is why, we advised him to follow up with Hematology with help of primary care physician. For his high cholesterol, we started Lipitor therapy. Potassium was replaced while in hospital. He had burning urination and that is why we did urinalysis, which showed microscopic hematuria and that is why we did CT stone protocol and found with enlarged prostate and that is why we started on Flomax. All new medication prescription given to him. Cipro is given empirically for possible UTI. The patient is instructed to follow up with Urology after discharge. The patient is seen and examined at bedside today, please see my progress note from today for further details. The patient's stress test came back negative. Job ID: [id number]
[2019-01-15] MEDS ORDERED: Ciprofloxacin 500 MG TAB PO SCH (20:00)
[2019-01-16] MEDS ORDERED: Tamsulosin HCl 0.4 MG CAP PO SCH (09:00)
--- NOTE | 2019-01-21 22:10 | EKG ---
Test Reason : Blood Pressure : / mmHG Vent. Rate : 055 BPM Atrial Rate : 055 BPM P-R Int : 152 ms QRS Dur : 110 ms QT Int : 436 ms P-R-T Axes : 056 -14 037 degrees QTc Int : 417 ms Sinus bradycardia Otherwise normal ECG Confirmed by DELLA HARRIS D.O. ([id number]), features editor ADELINA CORNEJO ([id number]) on 01/21/2019 10:10:09 PM Referred By: Confirmed By:DELLA HARRIS D.O.
== END 2019-01-15 18:47 | disposition home or self-care (01) ==
LOC: ERS 20:28 → 2SW 22:28
PROVIDERS: ADMIT Internal Medicine; ATTEND Internal Medicine
DX: R07.9 Chest pain, unspecified (principal); I13.0 Hypertensive heart and chronic kidney disease with heart failure and stage 1 through stage 4 chronic kidney disease, or unspecified chronic kidney disease; E11.22 Type 2 diabetes mellitus with diabetic chronic kidney disease; N18.9 Chronic kidney disease, unspecified; I50.9 Heart failure, unspecified; E78.00 Pure hypercholesterolemia, unspecified; E78.5 Hyperlipidemia, unspecified; M19.90 Unspecified osteoarthritis, unspecified site; E87.6 Hypokalemia; N40.0 Benign prostatic hyperplasia without lower urinary tract symptoms; R31.29 Other microscopic hematuria
CPT/HCPCS: 36415; 71045; 74176; 78452; 80048; 80053; 80061; 81003; 81015; 82550; 83690; 83735; 84443; 84484; 85025; 93005; 93017; 96360; 96361; A9500; G0378

== ENCOUNTER 2019-01-19 17:19 | Observation (INO) | payer OTHER ==
[2019-01-19] MEDS ORDERED: Ondansetron PF 4 MG/2 ML Vial IVP PRN (18:42)
[2019-01-19] MEDS ORDERED: Ondansetron ODT 4 MG TAB PO PRN (18:42)
[2019-01-19 19:34] LABS: #Eosinphils 0.1 thou/uL (0.0-0.7); #Lymphocytes 1.6 thou/uL (1.20-3.40); #Monocytes 0.3 thou/uL (0.11-0.59); #Neutrophils 1.8 thou/uL (1.40-6.50); %Basophils 1.1 % (0.0-1.0); %Eosinophils 2.9 % (0.0-10.0); %Lymphocytes 41.5 % (21.0-51.0); %Monocytes 7.4 % (0.0-10.0); %Neutrophils 47.1 % (42.0-75.0); Hemoglobin 14.1 g/dL (14.0-18.0); Mean Corpuscular HGB CONC 35.4 g/dL (32.0-36.0); Mean Corpuscular Hemoglobin 31.2 pg (27.0-31.0); Mean Corpuscular Volume 88.1 fL (78.0-98.0); Mean Platelet Volume 7.9 fL (7.4-10.4); Platelet Count 180 thou/uL (130-400); RBC Distribution Width 12.3 % (11.5-14.5); Red Blood Cell (RBC) Count 4.51 mill/uL (4.70-6.10); White Blood Cell (WBC) Count 3.8 thou/uL (4.8-10.8)
[2019-01-19 19:54] LABS: Anion Gap 13 mmol/L (10-20); BUN (Urea Nitrogen) 19 mg/dL (8.4-25.7); Calc. Creatinine Clearance 0 mL/min (70-130); Calcium 10.2 mg/dL (7.8-10.44); Carbon Dioxide 28 mmol/L (22-29); Chloride 99 mmol/L (98-107); Estimated GFR-MDRD 82; Glucose 81 mg/dL (70-105); Magnesium 1.9 mg/dL (1.6-2.6); Potassium 3.5 mmol/L (3.5-5.1); Sodium 136 mmol/L (136-145)
--- NOTE | 2019-01-19 20:08 | ULT ---
Carotid duplex sonogram HISTORY: TIA. Vascular disease. FINDINGS: Right: Mild plaque. Color and spectral Doppler evaluation, peak systolic velocity of 55 cm/s, and IC to CC ratio 1.0 suggest no hemodynamically significant stenosis within the extracranial right ICA. Antegrade flow within the vertebral artery. Left: Mild plaque. Color and spectral Doppler evaluation, peak systolic velocity of 58 cm/s, and IC t o CC ratio 0.7 suggest no significant stenosis within the extracranial left ICA. Antegrade flow within the vertebral artery. IMPRESSION: Atherosclerosis. No sonographic evidence of significant extracranial ICA stenosis
--- NOTE | 2019-01-19 20:18 | HP ---
PRIMARY CARE PHYSICIAN: Quiana Valderrama DO CHIEF COMPLAINT: Left-sided numbness and weakness. HISTORY OF PRESENT ILLNESS: Mr. Bustos is a 53-year-old gentleman who presents with a prolonged episode of left-sided numbness and weakness in his left arm and leg. According to his , he had reportedly had felt numbness of the left side of his face as well. This happened at approximately 1 p.m. after he ate lunch. He was taken to the emergency department in [place] where he underwent imaging including a CT angiogram of the head and neck showing no acute intracranial findings. Apparently, the bilateral proximal internal carotid arteries could not be evaluated due to severe motion at those levels. There was totally opacified frontal sinuses filled with soft tissue density material with large number of tiny calcifications. This was felt to be a mucocele versus postsurgical changes versus combination of both. He was treated with 324 mg of aspirin. Discussion was made for tPA, however, not given. Apparently, the patient has had similar symptoms intermittently for the last 2 to 3 weeks. Today, it lasted 2 to 3 hours. He had a staggering gait, which has resolved; however, he has some altered sensation that lingers in the left arm and leg. The facial numbness has resolved. The patient denies having any slurred speech or visual disturbances. No headache. Did not experience any chest pain. He reports having some difficulty with his breathing, but feels he was panicking. He was recently discharged from the hospital on January 15, 2019, after undergoing investigations for chest pain. He underwent a stress test that showed an unremarkable cardiac scan with no evidence of infarct or ischemia. He had an EF of 87% with normal wall motion. During his hospital stay, he was found to have a urinary tract infection and discharged home on antibiotics. The patient states he was recently restarted on a few of his medications including his antihypertensives and statin. He was sent home on Cipro for 5 days to treat his UTI and also placed on Flomax due to underlying BPH. REVIEW OF SYSTEMS: The patient denies having any recent fevers, chills, or sweats. Denies having any headaches. Denies any dizziness or spinning sensation. No abdominal pain or cramping. No bowel changes or urinary symptoms. All other review of systems are negative. PAST MEDICAL HISTORY: 1. Hypertension. 2. Hyperlipidemia. 3. Heart failure. 4. Arthritis. 5. BPH. PAST SURGICAL HISTORY: None. SOCIAL HISTORY: The patient lives with his . Denies any alcohol consumption, tobacco use, or illicit drug use. ALLERGIES: NO KNOWN DRUG ALLERGIES. CURRENT MEDICATIONS: 1. Lisinopril/hydrochlorothiazide. 2. Nifedipine. 3. Atorvastatin. 4. Diclofenac. 5. Tamsulosin. 6. Ciprofloxacin. 7. Spironolactone. 8. Hydralazine. 9. Aspirin. PHYSICAL EXAMINATION: GENERAL: The patient appears well developed, well nourished, and is in no acute distress. VITAL SIGNS: Temperature 98.2, blood pressure 151/84, pulse 60, respirations 19, O2 saturation 98% on room air. HEENT: Normocephalic and atraumatic. Exophthalmos notable. Extraocular movements intact. Visual ann intact. Oropharynx is clear. NECK: Supple without lymphadenopathy. Full range of motion. No neck pain or tenderness. LUNGS: Clear to auscultation bilaterally without wheezes, rales, or rhonchi. CARDIAC: Regular rate and rhythm. ABDOMEN: Soft, nontender, and nondistended. Normoactive bowel sounds present. EXTREMITIES: No lower leg swelling or edema. NEUROLOGIC: Alert and oriented x3. Speech normal. Facial movements normal. No facial weakness. He does, however, have altered sensation to the left side of his face. Slightly reduced strength in the left lower and upper extremity compared to the right. Power is approximately 3.5/4. He has altered sensation to the entire left arm and left leg. No tongue deviation. No cerebellar signs. No past-pointing. INVESTIGATIONS: As mentioned above in HPI. Additionally, the patient underwent laboratory studies, which showed a normal full blood count. Potassium slightly low at 3.4, BUN 20, creatinine 1.27, GFR 72, glucose . LFTs notable for AST of 39, ALT of 86, alkaline phosphatase of 57. Troponin done and negative. Lipid panel recently checked on January 15, 2019. TSH checked on January 15, 2019, was normal. IMPRESSION AND PLAN: Mr. Bustos is a 53-year-old gentleman presenting with left-sided numbness and weakness, also reported to have ataxic gait during initial presentation at [facility]. He has been referred for management of the following; 1. Transient ischemic attack/cerebrovascular accident rule out. CT angiogram of the head and neck unremarkable for any intracranial abnormalities, however, inability to assess internal carotid arteries. We will obtain a carotid ultrasound. MRI of the brain requested as well as an echo. Neurology consult placed. The patient continues with altered sensation in the left arm and leg. PT/OT consult placed. We have also requested an echo. 2. Hypertension. Resume home medications and monitor blood pressure. 3. Hypokalemia. Potassium slightly low at 3.4. The patient states he recently resumed his potassium supplements. We will replace. We will add on magnesium and replace that if necessary as well. 4. Heart failure. We will add on BNP. Echo as mentioned above. 5. Gastrointestinal prophylaxis with famotidine. 6. Deep venous thrombosis prophylaxis with mechanical SCDs. 7. Urinary tract infection. The patient due to complete Cipro tomorrow. We will continue Cipro and complete the course. Urinalysis and urine drug screen requested. 8. Code status full. His surrogate decision maker is his , Madelyn Bustos. The patient's case discussed with attending who agrees with plan of care as described above. Job ID: [id number]
[2019-01-19] MEDS ORDERED: Acetaminophen 650 MG Suppository PR PRN (22:06)
[2019-01-19] MEDS ORDERED: Cipro 250 MG TAB PO SCH (22:15)
[2019-01-19] MEDS: Acetaminophen 325 MG TAB PO PRN (22:48)
[2019-01-19] MEDS: Sodium Chloride 0.9% 1,000 ML IV SCH (22:48)
[2019-01-19] MEDS: Famotidine/PF 20 mg/2ml Vial SLOW IVP SCH (22:48)
[2019-01-19] MEDS: NIFEdipine XL 60 MG TAB PO SCH (22:48)
[2019-01-19] MEDS: hydrALAZINE 25 MG TAB PO SCH (22:49)
[2019-01-19] MEDS: Atorvastatin Calcium 40 MG TAB PO SCH (22:49)
[2019-01-20 00:14] VITALS: BMI 26.7
[2019-01-20 00:44] LABS: Bacteria/HPF None Seen HPF (None Seen); Bilirubin Negative (Negative); Blood, Urine Negative (Negative); Clarity Clear (Clear); Glucose, Urine (Dipstick) Normal (Negative); Leukocyte Negative Leu/uL (Negative); Mucous/LPF Rare LPF (<2+); Nitrite Negative (Negative); Protein, Urine (Dipstick) Negative (Neg-Trace); Squamous Epithelial None Seen HPF (0-3); WBC/HPF 0-3 HPF (0-3)
[2019-01-20 00:45] LABS: Urine Culture Reflex No No
[2019-01-20 00:50] LABS: Amphetamine Not Detected (NotDetected); Barbiturates Screen Not Detected (NotDetected); Benzodiazepine Screen Not Detected (NotDetected); Cocaine Metabolite Screen Not Detected (NotDetected); Medtox Control Line Valid? VALID (VALID); Medtox Reader # READER 4; Methadone Not Detected (NotDetected); Methamphetamine Not Detected (NotDetected); Opiate Screen Not Detected (NotDetected); Oxycodone Screen Not Detected (NotDetected); Phencyclidine (PCP) Not Detected (NotDetected); THC/Cannabinoid Screen Not Detected (NotDetected); Tricyclic Screen Not Detected (NotDetected)
[2019-01-20 06:40] LABS: Cardiac Risk 6.1 (Less than 4.5)
[2019-01-20] MEDS: NIFEdipine XL 60 MG TAB PO SCH ×2 (08:19→20:02)
[2019-01-20] MEDS: Ciprofloxacin 500 MG TAB PO SCH ×2 (08:20→20:02)
[2019-01-20] MEDS: Famotidine/PF 20 mg/2ml Vial SLOW IVP SCH ×2 (08:20→20:03)
[2019-01-20] MEDS: Spironolactone 25 MG TAB PO SCH (08:20)
[2019-01-20] MEDS: Lisinopril/Hydrochlorothiazide 20/25 mg Tablet PO SCH (08:20)
[2019-01-20] MEDS: hydrALAZINE 25 MG TAB PO SCH ×2 (08:20→20:02)
[2019-01-20] MEDS: Aspirin 325 mg Enteric Coated Tablet PO SCH (08:20)
[2019-01-20] MEDS: Acetaminophen 325 MG TAB PO PRN ×3 (08:21→20:03)
--- NOTE | 2019-01-20 08:47 | CON ---
DATE OF CONSULTATION: 01/20/2019 CONSULTING PHYSICIAN: Hospitalist Service. IMPRESSION: 1. Probable small vessel stroke. 2. History of congestive heart failure. PLAN: 1. Add Lipitor. 2. Continue aspirin. 3. Echocardiogram. 4. Consider anticoagulation if the ejection fraction is below 30%. HISTORY OF PRESENT ILLNESS: Mr. Bustos is a 53-year-old man from [place]. He developed acute numbness of the left arm and leg. It was not associated with any facial involvement. He denied any slurred speech, headache, nausea, vomiting, vertigo, double vision, blurred vision, or weakness. His symptoms have improved, but persisted. He has not had anything like this before. He is followed by Dr. Mensah for his heart. He is on blood pressure medication and aspirin. He was not taking a statin. His lipid ratio was 6.1. PAST MEDICAL HISTORY: Hypertension, CHF. ALLERGIES: NONE. SOCIAL HISTORY: No tobacco or alcohol use. FAMILY HISTORY: Noncontributory. MEDICATION LIST: Reviewed. REVIEW OF SYSTEMS: Ten-system review of systems is otherwise negative. PHYSICAL EXAMINATION: GENERAL: He is a healthy-appearing middle-aged man, in no acute distress. VITAL SIGNS: Blood pressure 196/105, pulse 52, respirations 16, and temperature 97.6. HEENT: Pupils 2 mm, symmetric. Oropharynx is clear. Cranium; normocephalic and atraumatic. NECK: Supple. No lymphadenopathy. EXTREMITIES: No cyanosis, clubbing, or edema. NEUROLOGIC: He is alert and cooperative. His speech is fluent and clear. Cranial nerves II through XII are intact. Motor exam showed an equal strength without fix or drift. Sensation was subjectively decreased to light touch in the left arm and leg. Cerebellar testing showed normal doreyl-hm-axtu and rapid alternating movements. He can walk independently. No abnormal movements were seen. LABORATORY STUDIES: CBC and serum chemistries were unremarkable. Urine was clear. Toxicology screen was negative. CT angiogram had some limitations due to motion, but otherwise did not show any major vessel stenosis. His carotids were clear. SUMMARY: A 53-year-old man with giovany-numbness on the left side of the body consistent with a probable small vessel stroke related to his hypertension. Start Lipitor as you have undertaken and complete his workup with an echocardiogram. Job ID: [id number]
[2019-01-20] MEDS ORDERED: Tamsulosin HCl 0.4 MG CAP PO SCH ×2 (09:00→21:00)
[2019-01-20] MEDS: Sodium Chloride 0.9% 1,000 ML IV SCH (14:23)
--- NOTE | 2019-01-20 15:23 | MRI ---
MRI BRAIN WITHOUT CONTRAST: HISTORY: Left-sided weakness CORRELATION: CT scan from 01/19/2019. FINDINGS: No restricted diffusion is seen. There are multiple foci of T2 prolongation in the periventricular wh ite matter, consistent with chronic small vessel ischemic disease. The ventricular size is appropriate and the basilar cisterns are patent. No evidence of acute infarct, hemorrhage, midline shift or abnormal extra-axial fluid collections is seen. The broad left frontal dural ossification is better visualized on the CT scan. There is mucosal disease in the paranasal sinuses. IMPRESSION: No evidence of acute intracranial process.
--- NOTE | 2019-01-20 17:22 | PDOC.HOSPP ---
- Subjective Encounter Date: 01/20/19 Encounter Time: 11:30 Subjective: pt up in bed complains of weakness of his left upper ext and lower ext - Objective Vital Signs & Weight: Vital Signs (12 hours) Temp Pulse Pulse Pulse Resp BP BP 01/20/19 15:19 97.7 F 65 16 01/20/19 11:35 97.9 F 55 L 16 01/20/19 11:14 58 L 54 L 135/87 153/90 H 01/20/19 08:38 60 65 144/94 H 158/99 H 01/20/19 08:20 68 01/20/19 08:19 68 01/20/19 07:19 99.1 F 61 16 BP Pulse Ox 01/20/19 15:19 165/99 H 98 01/20/19 11:35 153/90 H 98 01/20/19 11:14 01/20/19 08:38 01/20/19 08:20 01/20/19 08:19 01/20/19 07:19 134/84 99 Weight Weight 165 lb 12.8 oz I&O: 01/19/19 01/20/19 01/21/19 06:59 06:59 06:59 Intake Total 100 480 Output Total 820 1075 Balance -720 -595 Result Diagrams: 01/19/19 19:20 01/19/19 19:20 Hospitalist ROS - Review of Systems Cardiovascular: denies: chest pain, palpitations, orthopnea, paroxysmal noc. dyspnea, edema, light headedness, other Gastrointestinal: denies: nausea, vomitting, abdominal pain, diarrhea, constipation, melena, hematochezia, other - Medication Medications: Active Medications Generic Name Dose Route Start Last Admin Trade Name Freq PRN Reason Stop Dose Admin Acetaminophen 650 mg 01/19/19 22:06 01/20/19 16:10 Tylenol PO 650 mg Q4H PRN Administration Headache/Fever/Mild Pain (1-3) Aspirin 325 mg 01/20/19 09:00 01/20/19 08:20 Ecotrin PO 325 mg DAILY SONY Administration Atorvastatin Calcium 40 mg 01/19/19 21:00 01/19/19 22:49 Lipitor PO 40 mg HS SONY Administration Ciprofloxacin 500 mg 01/20/19 09:00 01/20/19 08:20 Cipro PO 500 mg BID SONY Administration Famotidine 20 mg 01/19/19 21:00 01/20/19 08:20 Pepcid SLOW IVP 20 mg Q12HR SONY Administration Lisinopril/HCTZ 1 tab 01/20/19 09:00 01/20/19 08:20 Prinizide 20-25 PO 1 tab DAILY SONY Administration Hydralazine HCl 25 mg 01/19/19 21:00 01/20/19 08:20 Apresoline PO 25 mg BID SONY Administration Sodium Chloride 1,000 mls @ 65 mls/hr 01/19/19 18:45 01/20/19 14:23 Normal Saline 0.9% IV 1,000 mls .[id number] SONY Administration Nifedipine 60 mg 01/19/19 21:00 01/20/19 08:19 Procardia Xl PO 60 mg BID SONY Administration Sodium Chloride 10 ml 01/19/19 18:35 01/20/19 08:21 Flush - Normal Saline IVF 10 ml PRN PRN Administration Saline Flush Spironolactone 25 mg 01/20/19 09:00 01/20/19 08:20 Aldactone PO 25 mg DAILY SONY Administration - Exam Neck: negative: supple, symmetric, no JVD, no thyromegaly, no lymphadenopathy, no carotid bruit, JVD Heart: negative: RRR, no murmur, no gallops, no rubs, normal peripheral pulses, irregular, diminshed peripheral pulses, murmur present, II/IV, III/IV Respiratory: negative: CTAB, no wheezes, no rales, no ronchi, normal chest expansion, no tachypnea, normal percussion, rales, rhonchi, tachypneic, wheezes Gastrointestinal: negative: soft, non-tender, non-distended, normal bowel sounds , no palpable masses, no hepatomegaly, no splenomegaly, no bruit, no guarding, no rigidity, tender to palpation, distended, diminished bowl sounds, voluntary guarding Hosp A/P (1) Left arm weakness Code(s): R29.898 - [facility] SYMPTOMS AND SIGNS INVOLVING THE MUSCULOSKELETAL SYSTEM Status: Acute (2) Hypertension Code(s): I10 - ESSENTIAL (PRIMARY) HYPERTENSION Status: Chronic - Plan will get MRi brain, echo ordered. carotid doppler no stenosis. will continue asa /statin.
[2019-01-20] MEDS: Atorvastatin Calcium 40 MG TAB PO SCH (20:03)
[2019-01-21] MEDS: Sodium Chloride 0.9% 1,000 ML IV SCH (06:37)
[2019-01-21] MEDS: NIFEdipine XL 60 MG TAB PO SCH (08:10)
[2019-01-21] MEDS: Aspirin 325 mg Enteric Coated Tablet PO SCH (08:10)
[2019-01-21] MEDS: Ciprofloxacin 500 MG TAB PO SCH (08:11)
[2019-01-21] MEDS: Spironolactone 25 MG TAB PO SCH (08:11)
[2019-01-21] MEDS: hydrALAZINE 25 MG TAB PO SCH (08:11)
[2019-01-21] MEDS: Famotidine/PF 20 mg/2ml Vial SLOW IVP SCH (08:11)
[2019-01-21] MEDS: Lisinopril/Hydrochlorothiazide 20/25 mg Tablet PO SCH (08:11)
--- NOTE | 2019-01-21 09:44 | CT ---
EXAM: CT Lumbar Spine WO Con PROVIDED CLINICAL HISTORY: Left leg numbness COMPARISON: None FINDINGS: Lumbar alignment appears normal. Vertebral body heights are preserved. No concerning lytic or blastic lesions are seen. No significant central canal or foraminal narrowing apparent by CT. The visualized extraspinal soft tissues demonstrate an unremarkable unenhanced CT appearance. IMPRESSION: No CT evidence for significant central canal or foraminal narrowing.
[2019-01-21 10:36] LABS: Troponin I Less than 0.010 ng/mL (< 0.028)
[2019-01-21 11:32] VITALS: BP 131/85; TEMP 98.2
--- NOTE | 2019-01-21 22:25 | DIS ---
DATE OF ADMISSION: 01/19/2019 DATE OF DISCHARGE: 01/21/2019 DISCHARGE DIAGNOSES: 1. Left upper and lower extremity weakness. 2. Hypertension. HOSPITAL COURSE: The patient is a 53-year-old male, who initially presented to the hospital with left-sided weakness. He underwent a stroke workup and also was seen by Neurology. The carotid Dopplers that he had done just indicated mild plaque in both right and left carotids; however, no significant extracranial ICA stenosis was noted. He also underwent an MRI brain, which indicated no evidence of acute stroke. He also had an echocardiogram, which indicated an EF of 55% to 60% with no significant valvular abnormalities. The patient was seen by Neurology, who recommended aspirin and statin for possible small vessel ischemic disease. Due to his continuous weakness to his left leg, we did do a lumbar CT, which essentially was normal, it did not show any central canal stenosis. The patient will be discharged home. He will follow up with his primary care. HOME MEDICATIONS: His home medications will be; 1. Lisinopril/hydrochlorothiazide 1 p.o. b.i.d. 2. Hydralazine 25 b.i.d. 3. Nifedipine 60 mg b.i.d. 4. Spironolactone 25 mg daily. 5. Aspirin 81 mg daily. 6. Atorvastatin 40 mg daily. PHYSICAL EXAMINATION: VITAL SIGNS: Temperature 98.2, heart rate 69, respirations 16, oxygen saturation 98% on room air, blood pressure 131/85. GENERAL: He is awake, alert, and oriented x3. Does not appear in distress. CV: S1, S2 present. No murmurs, rubs, or gallops. ABDOMEN: Soft and nontender. Bowel sounds are present x2. Again, he will be discharged home. He will follow up with his primary. Job ID: [id number]
== END 2019-01-21 14:10 | disposition home or self-care (01) ==
LOC: ERS 17:19 → 2SE 20:45
PROVIDERS: ADMIT Family Medicine; ATTEND Family Medicine
DX: R53.1 Weakness (principal); N40.0 Benign prostatic hyperplasia without lower urinary tract symptoms; I11.0 Hypertensive heart disease with heart failure; I50.9 Heart failure, unspecified; E78.5 Hyperlipidemia, unspecified; M19.90 Unspecified osteoarthritis, unspecified site; N39.0 Urinary tract infection, site not specified; E87.6 Hypokalemia; I65.23 Occlusion and stenosis of bilateral carotid arteries; Z79.2 Long term (current) use of antibiotics; Z79.82 Long term (current) use of aspirin; Z79.899 Other long term (current) drug therapy
CPT/HCPCS: 36415; 70551; 72131; 80061; 80306; 81001; 82550; 83735; 83880; 84484; 93306; 93880; 96361; 96374; 96376; G0378; S0028

== ENCOUNTER 2019-01-21 20:19 | Observation (INO) | payer OTHER ==
[2019-01-21 20:47] LABS: #Eosinphils 0.1 thou/uL (0.0-0.7); #Lymphocytes 1.8 thou/uL (1.20-3.40); #Monocytes 0.4 thou/uL (0.11-0.59); #Neutrophils 2.2 thou/uL (1.40-6.50); %Basophils 0.4 % (0.0-1.0); %Monocytes 8.2 % (0.0-10.0); %Neutrophils 48.5 % (42.0-75.0); Mean Corpuscular HGB CONC 35.4 g/dL (32.0-36.0); Mean Corpuscular Volume 87.6 fL (78.0-98.0); Mean Platelet Volume 7.7 fL (7.4-10.4); Platelet Count 194 thou/uL (130-400); RBC Distribution Width 12.5 % (11.5-14.5); Red Blood Cell (RBC) Count 4.52 mill/uL (4.70-6.10); White Blood Cell (WBC) Count 4.4 thou/uL (4.8-10.8)
--- NOTE | 2019-01-21 20:51 | RAD ---
EXAM: Single view of the chest HISTORY: Chest pain COMPARISON: 01/14/2019 FINDINGS: Single view of the chest shows a normal sized cardiomediastinal silhouette. There is no luis felipe dence of consolidation, mass, or pleural effusion. The bones are unremarkable. IMPRESSION: No evidence of acute cardiopulmonary disease
[2019-01-21 21:09] LABS: ALT (SGPT) 101 U/L (8-55); AST (SGOT) 37 U/L (5-34); Albumin 4.5 g/dL (3.5-5.0); Alkaline Phosphatase 58 U/L (40-150); Anion Gap 14 mmol/L (10-20); BUN (Urea Nitrogen) 20 mg/dL (8.4-25.7); Bilirubin, Total 0.3 mg/dL (0.2-1.2); Calc. Creatinine Clearance 0 mL/min (70-130); Carbon Dioxide 24 mmol/L (22-29); Chloride 103 mmol/L (98-107); Estimated GFR-MDRD 61; Globulin 2.6 g/dL (2.4-3.5); Glucose 98 mg/dL (70-105); Lipase 24 U/L (8-78); Magnesium 1.6 mg/dL (1.6-2.6); Potassium 3.4 mmol/L (3.5-5.1); Protein, Total 7.1 g/dL (6.0-8.3); Sodium 138 mmol/L (136-145)
[2019-01-21 21:58] LABS: Bilirubin Negative (Negative); Blood, Urine Negative (Negative); Clarity Clear (Clear); Glucose, Urine (Dipstick) Normal (Negative); Leukocyte Negative Leu/uL (Negative); Nitrite Negative (Negative); Protein, Urine (Dipstick) Negative (Neg-Trace); Urobilinogen Normal mg/dL (Less than 2)
[2019-01-21] MEDS ORDERED: Potassium Chloride 20 MEQ TAB ONE (22:17)
[2019-01-21] MEDS ORDERED: Acetaminophen 500 MG TAB ONE (22:46)
[2019-01-22 00:48] LABS: Troponin I Less than 0.010 ng/mL (< 0.028)
[2019-01-22 01:45] VITALS: BMI 24.7
[2019-01-22 05:22] LABS: Troponin I Less than 0.010 ng/mL (< 0.028)
[2019-01-22] MEDS ORDERED: Tamsulosin HCl 0.4 MG CAP PO SCH (09:00)
[2019-01-22] MEDS ORDERED: Hydrochlorothiazide 25 MG TAB PO SCH (09:00)
[2019-01-22] MEDS ORDERED: NIFEdipine XL 60 MG TAB PO SCH (09:00)
[2019-01-22] MEDS ORDERED: Aspirin Chewable 81 MG TAB PO SCH (09:00)
[2019-01-22] MEDS ORDERED: Atorvastatin Calcium 40 MG TAB PO SCH (09:00)
[2019-01-22] MEDS ORDERED: Lisinopril 20 MG TAB PO SCH (09:00)
[2019-01-22] MEDS ORDERED: Aspirin 81 mg Enteric Coated Tablet PO SCH (09:00)
[2019-01-22] MEDS ORDERED: Lisinopril/Hydrochlorothiazide 20/25 mg Tablet PO SCH (09:00)
[2019-01-22] MEDS ORDERED: Non-Formulary Item 1 EACH (Nifedipine [Nifedipine Er] 60 MG) PO SCH (09:00)
[2019-01-22 14:37] LABS: Anion Gap 14 mmol/L (10-20); BUN (Urea Nitrogen) 18 mg/dL (8.4-25.7); Calc. Creatinine Clearance 103 mL/min (70-130); Calcium 10.4 mg/dL (7.8-10.44); Carbon Dioxide 27 mmol/L (22-29); Chloride 99 mmol/L (98-107); Estimated GFR-MDRD Greater than 90; Glucose 79 mg/dL (70-105); Potassium 3.6 mmol/L (3.5-5.1); Sodium 136 mmol/L (136-145)
[2019-01-22 15:25] VITALS: BP 121/85; TEMP 98.5
--- NOTE | 2019-01-22 22:20 | SS ---
DATE OF ADMISSION: 01/22/2019 DATE OF DISCHARGE: 01/22/2019 DISCHARGE DIAGNOSES: 1. Palpitations. 2. History of hyperthyroidism. 3. Hypertension. 4. Hypercholesterolemia. HOSPITAL COURSE: The patient is a 53-year-old male who I admitted and discharged from 01/19 to 01/21, initially came in with left-sided weakness. He had a stroke workup which was essentially normal including the MRI brain. I also did a CT lumbar spine, did not show any abnormalities. He also had a stress test done that was on 01/24/2019, which was normal. He was discharged home, however, he stated that when he went home, he felt about a minute or half a minute of palpitations, so he wanted to come into the ER to be checked in. He was observed throughout the day. His vitals have been stable. His laboratory results have been normal. His troponins have been negative. His free T4 is 1.14. TSH is normal. Lipase was 24. He had no abnormalities on the monitor. I have advised him that he will be discharged home. He will follow up with his primary and also Cardiology if he continues to have his palpitations. The only changes I have made on his medications is his nifedipine, I have decreased it from 60 mg twice a day to 60 mg once a day. HOME MEDICATIONS: As of the following; 1. Nifedipine 60 mg daily. 2. Tamsulosin 0.4 daily. 3. Hydralazine 25 mg b.i.d. 4. Aspirin 81 mg daily. 5. Atorvastatin 40 mg daily. 6. Lisinopril/hydrochlorothiazide 1 p.o. daily. 7. Spironolactone 25 mg daily. ALLERGIES: NO KNOWN ALLERGIES. REVIEW OF SYSTEMS: All negative except for the ones mentioned above in the HPI. PHYSICAL EXAMINATION: VITAL SIGNS: Temperature of 98.5, 55, 16, 100% on room air, 121/85. GENERAL: He is awake, alert, oriented x3. Does not appear in distress. CV: S1, S2 present. No murmurs, rubs, or gallops. ABDOMEN: Soft and nontender. Bowel sounds are present x2. EXTREMITIES: No edema. NEUROVASCULAR: No focal deficits noted. SKIN: No cuts, lesions, or bruises noted. PAST SURGICAL HISTORY: He denies any medical history. He has hypertension, hyperlipidemia, and hyperthyroidism. FAMILY HISTORY: Denies any family history of heart disease. REVIEW OF SYSTEMS: All negative except for the ones mentioned above in HPI. ASSESSMENT AND PLAN: He was initially admitted for; 1. Palpitations, which his EKG was unchanged. He had no events on the monitor. He was not found to be tachycardic. His electrolytes and vitals have been stable. I have asked him to follow up with his marketing recruiter if he continues to have the palpitations for possible loop recorder. His echocardiogram also was done recently including the stress test, which has been normal. 2. Hypertension. I have decreased his nifedipine from 60 mg b.i.d. to 60 mg daily, sometimes that can also cause dizziness and palpitations. 3. Hyperlipidemia. I will continue his statin. 4. The patient again will be discharged home. He will follow up with his primary and Cardiology. Job ID: [id number]
[2019-01-23] MEDS ORDERED: Aspirin 81 mg Enteric Coated Tablet PO SCH (09:00)
--- NOTE | 2019-01-28 15:56 | EKG ---
Test Reason : ER INDICATION Blood Pressure : / mmHG Vent. Rate : 089 BPM Atrial Rate : 089 BPM P-R Int : 152 ms QRS Dur : 100 ms QT Int : 358 ms P-R-T Axes : 055 -05 054 degrees QTc Int : 435 ms Normal sinus rhythm Minimal voltage criteria for LVH, may be normal variant Borderline ECG Confirmed by MODE DOHERTY ([id number]), film or videotape editor YONNY JUAN ([id number]) on 01/28/2019 3:55:39 PM Referred By: Confirmed By:MODE DOHERTY
== END 2019-01-22 17:44 | disposition home or self-care (01) ==
LOC: ERS 20:19 → 2SE 01-22 01:08
PROVIDERS: ADMIT Hospitalist; ATTEND Hospitalist
DX: R00.2 Palpitations (principal); I10 Essential (primary) hypertension; E78.00 Pure hypercholesterolemia, unspecified; Z79.82 Long term (current) use of aspirin; Z79.899 Other long term (current) drug therapy
CPT/HCPCS: 36415; 71045; 80048; 80053; 81003; 83690; 83735; 84439; 84484; 85025; 93005; 94760; G0378

== ENCOUNTER 2019-03-02 09:22 | Outpatient (CLI) | payer OTHER ==
--- NOTE | 2019-03-03 12:17 | PFT ---
PATIENT HISTORY: HEIGHT: 66 IN WEIGHT: 162 LBS SMOKER: NO HOW LONG: NA PACKS PER DAY: PRODUCTIVE COUGH: LUNG DISEASE: PHYSICIAN INTERPRETATION FINAL REPORT: Patient had good effort and good cooperation, but could not exhale for longer than six seconds. Several attempts were made to get a longer exhalation time but they were not fruitless. PFT data: FVC 2.85 (80%), FEV1 2.84 (100%), FEV1/FVC 0.100. RV 1.42 (72%), TLC 5.60 (101%) DIFFUSION 18.3 (67%) Maximum Voluntary Ventilation 81 (68%). The FVC is at the lower limits of normal. The FEV1 is normal. Unfortunately, the ratio cannot be interpreted as the total expiratory time was only 1.2 seconds. Residual Volume is low, but likely artifactual asd the ERV was elevated suggesting incomplete exhalation. Total Lung Capacity was normal. Diffusion Capacity is minimally impaired, but maybe an artifact of incomplete breath hold. IMPRESSION: Overall, these pulmonary function studies are likely normal, although the decrease total expiratory time and inability to hold breath during diffusion maneuver gives us some artifactually low numbers. I certainly don't see anything that looks like obstructive air flow limitation on the expiratory limb of the flow volume loop. Clinical correlation recommended. [employer]ision Millwright: ANGELINA Circuit Court Clerk: ANGELINA STALLINGS
== END 2019-03-02 09:23 | disposition home or self-care (01) ==
LOC: CP 09:22
PROVIDERS: ATTEND Family Medicine
DX: R06.09 Other forms of dyspnea (principal)
CPT/HCPCS: 94010; 94727; 94729

== ENCOUNTER 2019-05-22 05:19 | Emergency (ER) | payer OTHER ==
[2019-05-22] MEDS ORDERED: HYDROcodone/Acetaminophen 5/325 mg Tablet ONE (05:47)
--- NOTE | 2019-05-22 08:23 | RAD ---
THREE VIEWS RIGHT ANKLE: COMPARISON: None. HISTORY: Ankle pain. FINDINGS: Three views right ankle show no evidence of acute fracture or dislocation. No degenerative changes a re seen. No soft tissue swelling is seen. IMPRESSION: Unremarkable exam. POS: CET
--- NOTE | 2019-05-22 08:24 | RAD ---
THREE VIEWS OF LEFT WRIST: COMPARISON: 08/15/2014. HISTORY: Left wrist pain. FINDINGS: Three views left wrist show no evidence of acute fracture or dislocation. There are mild degenerativ e changes in the radiocarpal joint and distal radial ulnar joint. No focal soft tissue swelling is s een. 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 POS: CET
== END 2019-05-22 06:45 | disposition home or self-care (01) ==
LOC: ERS 05:19
DX: M10.9 Gout, unspecified (principal); M25.532 Pain in left wrist; M25.571 Pain in right ankle and joints of right foot; I11.0 Hypertensive heart disease with heart failure; I50.9 Heart failure, unspecified; E78.00 Pure hypercholesterolemia, unspecified; Z79.899 Other long term (current) drug therapy; Z79.82 Long term (current) use of aspirin
CPT/HCPCS: 36415; 84550

== ENCOUNTER 2022-12-28 20:56 | Observation (INO) | payer BC, OTHER ==
[2022-12-28 22:30] LABS: CK (CPK) 510 U/L (30-200); Magnesium 1.8 mg/dL (1.6-2.6)
[2022-12-28 22:33] LABS: Acetaminophen Less than 10 mcg/mL (10.0-30.0); Alcohol Less than 10.0 mg/dL (Less than 10); Salicylate Less than 8.0 mg/dL (15.0-30.0)
[2022-12-28 22:35] LABS: Troponin I 0.017 ng/mL (< 0.028)
[2022-12-28] MEDS ORDERED: hydrALAZINE 20 MG/ML VIAL ONE (23:32)
[2022-12-29] MEDS ORDERED: Acetaminophen 325 MG TAB PO PRN (00:48)
[2022-12-29] MEDS ORDERED: Ondansetron ODT 4 MG TAB PO PRN (00:48)
[2022-12-29] MEDS ORDERED: Acetaminophen 650 MG Suppository PR PRN (00:48)
[2022-12-29] MEDS ORDERED: Ondansetron PF 4 MG/2 ML Vial IVP PRN (00:48)
[2022-12-29] MEDS ORDERED: hydrALAZINE 25 MG TAB PO SCH ×2 (04:00→09:00)
[2022-12-29 04:08] VITALS: BMI 26.8
[2022-12-29 04:30] LABS: #Eosinphils 0.1 thou/uL (0.0-0.7); #Monocytes 0.4 thou/uL (0.11-0.59); #Neutrophils 1.9 thou/uL (1.40-6.50); %Basophils 0.5 % (0.0-1.0); %Monocytes 9.1 % (0.0-10.0); %Neutrophils 47.1 % (42.0-75.0); Hematocrit 39.2 % (42.0-52.0); Hemoglobin 13.4 g/dL (14.0-18.0); Mean Corpuscular HGB CONC 34.2 g/dL (32.0-36.0); Mean Corpuscular Hemoglobin 30.2 pg (27.0-31.0); Mean Corpuscular Volume 88.5 fl (78.0-98.0); Mean Platelet Volume 9.9 fL (7.4-10.4); Platelet Count 174 10x3/uL (130-400); RBC Distribution Width 13.2 % (11.5-14.5); Red Blood Cell (RBC) Count 4.43 mill/uL (4.70-6.10)
[2022-12-29 04:52] LABS: Anion Gap 13 mmol/L (10-20); BUN (Urea Nitrogen) 16 mg/dL (8.4-25.7); Calc. Creatinine Clearance 91 mL/min (70-130); Calcium 9.7 mg/dL (7.8-10.44); Carbon Dioxide 22 mmol/L (22-29); Chloride 105 mmol/L (98-107); Estimated GFR 88; Glucose 97 mg/dL (70-105); Potassium 3.5 mmol/L (3.5-5.1); Sodium 136 mmol/L (136-145)
[2022-12-29 04:56] LABS: Troponin I 0.048 ng/mL (< 0.028)
[2022-12-29] MEDS: Spironolactone 100 MG TAB PO SCH ×2 (08:48→16:04)
[2022-12-29] MEDS ORDERED: Losartan 25 MG TAB PO SCH (09:00)
[2022-12-29] MEDS ORDERED: NIFEdipine XL 60 MG TAB PO SCH (09:00)
[2022-12-29] MEDS ORDERED: Aspirin 81 mg Enteric Coated Tablet PO SCH (09:00)
[2022-12-29] MEDS ORDERED: Tamsulosin HCl 0.4 MG CAP PO SCH (09:00)
[2022-12-29] MEDS ORDERED: Gabapentin 100 MG CAP PO SCH (09:00)
[2022-12-29 10:40] LABS: Troponin I 0.025 ng/mL (< 0.028)
[2022-12-29 16:04] VITALS: BP 133/71; TEMP 98.2
== END 2022-12-29 17:27 | disposition home or self-care (01) ==
LOC: ERS 20:56 → 2SW 12-29 00:21 → INTOOBSV 12-29 00:21
PROVIDERS: ADMIT Student in an Organized Health Care Education/Training Program; ATTEND Emergency Medicine
DX: I16.0 Hypertensive urgency (principal); I10 Essential (primary) hypertension; R00.1 Bradycardia, unspecified; Z79.82 Long term (current) use of aspirin; Z79.899 Other long term (current) drug therapy
CPT/HCPCS: 36415; 70450; 80048; 80307; 82550; 83735; 84443; 84484; 85025; 93005; 93306; 96374; G0378; J0360

== ENCOUNTER 2023-02-23 09:42 | Outpatient (CLI) | payer BC | END 2023-02-23 09:43 | disposition home or self-care (01) | LOC: ULT 09:42 | PROVIDERS: ATTEND Internal Medicine Nephrology | DX: I70.1 Atherosclerosis of renal artery (principal); I15.9 Secondary hypertension, unspecified | CPT/HCPCS: 76770; 93975 ==

== ENCOUNTER 2023-11-17 11:27 | Inpatient (IN) | payer BC ==
[2023-11-17 12:50] VITALS: BMI 25.8
[2023-11-17] MEDS: Lactated Ringer's 1,000 ML IV SCH (14:59)
[2023-11-17 15:45] LABS: Magnesium 1.7 mg/dL (1.6-2.6)
[2023-11-17 15:50] LABS: Troponin I Less than 0.010 ng/mL (< 0.028)
[2023-11-17] MEDS: Magnesium 2 GM/50 ML(in water) 2 GM in Premix 1 BAG IVPB SCH (17:11)
[2023-11-17 19:06] LABS: Anion Gap 11 mmol/L (10-20); BUN (Urea Nitrogen) 16 mg/dL (8.4-25.7); Calc. Creatinine Clearance 65 mL/min (70-130); Calcium 9.5 mg/dL (7.8-10.44); Carbon Dioxide 25 mmol/L (22-29); Chloride 105 mmol/L (98-107); Estimated GFR 62; Glucose 81 mg/dL (70-105); Potassium 3.7 mmol/L (3.5-5.1); Sodium 137 mmol/L (136-145)
[2023-11-17] MEDS: Nitroglycerin 0.4 MG TAB (25 Tab Bottle) SL PRN (19:11)
[2023-11-17 19:14] LABS: Troponin I 0.019 ng/mL (< 0.028)
[2023-11-17] MEDS: NIFEdipine XL 60 MG ER.TAB PO SCH (19:15)
[2023-11-17] MEDS: Isosorbide Mononitrate 60 MG ER.TAB PO SCH (20:23)
[2023-11-17] MEDS: traMADol HCl 50 MG TAB PO PRN (20:24)
[2023-11-18] MEDS: hydrALAZINE 25 MG TAB PO SCH ×2 (00:25→09:34)
[2023-11-18 04:36] LABS: #Basophils Less than 0.03 10x3/uL (0.0-0.2); %Basophils 0.6 % (0.0-1.0); %Eosinophils 3.7 % (0.0-10.0); %Lymphocytes 49.1 % (21.0-51.0); %Monocytes 10.8 % (0.0-10.0); %Neutrophils 35.8 % (42.0-75.0); Hematocrit 44.5 % (42.0-52.0); Hemoglobin 15.7 g/dL (14.0-18.0); Mean Corpuscular HGB CONC 35.3 g/dL (32.0-36.0); Mean Corpuscular Hemoglobin 29.4 pg (27.0-31.0); Mean Corpuscular Volume 83.3 fL (78.0-98.0); Mean Platelet Volume 10.4 fL (7.4-10.4); Platelet Count 173 10x3/uL (130-400); RBC Distribution Width 12.6 % (11.5-14.5); Red Blood Cell (RBC) Count 5.34 mill/uL (4.70-6.10)
[2023-11-18 04:58] LABS: Anion Gap 15 mmol/L (10-20); BUN (Urea Nitrogen) 15 mg/dL (8.4-25.7); CK (CPK) 380 U/L (30-200); Calc. Creatinine Clearance 77 mL/min (70-130); Calcium 9.2 mg/dL (7.8-10.44); Carbon Dioxide 21 mmol/L (22-29); Cardiac Risk 4.9 (Less than 4.5); Chloride 106 mmol/L (98-107); Cholesterol 181 mg/dl (< 200 Desired); Estimated GFR 76; Glucose 95 mg/dL (70-105); HDL Cholesterol 37 mg/dL (>60 Neg Risk); LDL Cholesterol, Calculated 120 mg/dL; Potassium 3.6 mmol/L (3.5-5.1); Sodium 138 mmol/L (136-145); Triglycerides 119 mg/dL (Less than 150)
[2023-11-18] MEDS: Nitroglycerin 2% Ointment 1 INCH/1 GM Packet TOP SCH (08:24)
[2023-11-18] MEDS: Morphine 2 MG/ML VIAL SLOW IVP SCH (08:24)
[2023-11-18] MEDS: Nitroglycerin 2% Ointment 1 INCH/1 GM Packet ONE (08:25)
[2023-11-18] MEDS: Morphine 4 MG/ML VIAL ONE (08:25)
[2023-11-18] MEDS ORDERED: UBIDECARENONE 50 MG PO SCH (09:00)
[2023-11-18] MEDS: Nitroglycerin 50 MG/250 ML BOT 250 ML IVPB SCH (09:00)
[2023-11-18] MEDS: Fish Oil 1,000 MG CAP PO SCH (09:33)
[2023-11-18] MEDS: CO Q-10 CAPSULE 100 MG PO SCH (09:33)
[2023-11-18] MEDS: Sodium Bicarbonate Tab 325 MG TAB PO SCH (09:34)
[2023-11-18] MEDS: Aspirin 81 mg Enteric Coated Tablet PO SCH (09:34)
[2023-11-18] MEDS: Tamsulosin HCl 0.4 MG CAP PO SCH (09:35)
[2023-11-18 09:38] LABS: Troponin I Less than 0.010 ng/mL (< 0.028)
[2023-11-18] MEDS: Minoxidil 2.5 MG TAB PO SCH ×2 (10:46→21:06)
[2023-11-18] MEDS: EPLERENONE 100 MG PO SCH ×2 (12:12→21:06)
[2023-11-18 12:26] LABS: Troponin I Less than 0.010 ng/mL (< 0.028)
[2023-11-18] MEDS ORDERED: Communication Order-Pharmacy FS SCH (20:00)
[2023-11-18] MEDS: Potassium Chloride 20 MEQ TAB PO SCH (20:28)
[2023-11-19] MEDS: hydrALAZINE 20 MG/ML VIAL SLOW IVP SCH (03:27)
[2023-11-19 04:55] LABS: Anion Gap 16 mmol/L (10-20); BUN (Urea Nitrogen) 19 mg/dL (8.4-25.7); CK (CPK) 230 U/L (30-200); Calc. Creatinine Clearance 72 mL/min (70-130); Calcium 9.6 mg/dL (7.8-10.44); Carbon Dioxide 19 mmol/L (22-29); Chloride 106 mmol/L (98-107); Estimated GFR 70; Glucose 98 mg/dL (70-105); Phosphorus 3.3 mg/dL (2.3-4.7); Potassium 3.9 mmol/L (3.5-5.1); Sodium 137 mmol/L (136-145)
[2023-11-19] MEDS: Sodium Chloride 0.9% 1,000 ML IV SCH (05:28)
[2023-11-19] MEDS ORDERED: Heparin 10,000 UNITS/ 10 ML VIAL ONE (07:55)
[2023-11-19] MEDS ORDERED: Nitroglycerin 50 MG/250 ML BOT 0 ML ONE (07:55)
[2023-11-19] MEDS ORDERED: Midazolam HCl 2 mg/2 ml Vial ONE (08:39)
[2023-11-19] MEDS ORDERED: fentaNYL 50 mcg/mL 1 mL Vial ONE (08:39)
[2023-11-19] MEDS ORDERED: Metoprolol Tartrate 5 MG (5 mL) VIAL ONE (09:18)
[2023-11-19] MEDS ORDERED: Nitroglycerin 0.4 MG TAB (25 Tab Bottle) SL PRN (09:31)
[2023-11-19] MEDS ORDERED: Sodium Chloride 0.9% 200 ML IV PRN (09:31)
[2023-11-19 14:43] VITALS: BP 128/67
[2023-11-19 16:17] VITALS: TEMP 98.3
[2023-11-19] MEDS ORDERED: Tamsulosin HCl 0.4 MG CAP PO SCH (21:00)
== END 2023-11-19 17:39 | disposition home or self-care (01) | DRG 287 ==
LOC: UNDOADMIN 11:27 → 2NO 11:27 → INTOOBSV 11:27 → CCU 11-18 08:52 → OBSVTOIN 11-18 19:05
PROVIDERS: ADMIT Hospitalist; ATTEND Internal Medicine
PROC: 4A023N7 Measurement of Cardiac Sampling and Pressure, Left Heart, Percutaneous Approach (ICD-10-PCS; principal; 2023-11-18)
PROC: B2111ZZ Fluoroscopy of Multiple Coronary Arteries using Low Osmolar Contrast (ICD-10-PCS; 2023-11-18)
PROC: B2151ZZ Fluoroscopy of Left Heart using Low Osmolar Contrast (ICD-10-PCS; 2023-11-18)
DX: I16.0 Hypertensive urgency (principal); N17.9 Acute kidney failure, unspecified; I42.8 Other cardiomyopathies; M62.82 Rhabdomyolysis; E87.20 Acidosis, unspecified; R07.89 Other chest pain; I13.0 Hypertensive heart and chronic kidney disease with heart failure and stage 1 through stage 4 chronic kidney disease, or unspecified chronic kidney disease; N18.2 Chronic kidney disease, stage 2 (mild); I50.9 Heart failure, unspecified; Z79.82 Long term (current) use of aspirin; Z79.899 Other long term (current) drug therapy; E78.5 Hyperlipidemia, unspecified; N40.0 Benign prostatic hyperplasia without lower urinary tract symptoms; M10.9 Gout, unspecified; M19.90 Unspecified osteoarthritis, unspecified site; E87.6 Hypokalemia
CPT/HCPCS: 36415; 76770; 80048; 80061; 82550; 83735; 84100; 84484; 85025; 93005; 93010; 93976; 94760; C1769; C1887; C1894; J0360; J1644; J2250; J2272; J3010; J3475; J7050; J7120